=== PATIENT | female | born 1980 | race Two or more races ===

== ENCOUNTER → 2021-08-30 | Outpatient (CLI) | payer BC ==
[2021-08-30 15:40] LABS: BASOPHILS % 0.6 % (0.0-2.0); EOSINOPHILS % 6.3 % (0.0-5.0); HEMATOCRIT. 38.8 % (36.0-48.0); HEMOGLOBIN. 13.3 g/dL (12.0-16.0); LYMPHOCYTES % 43.9 % (20.0-50.0); MEAN CORPUSCULAR HEMOGLOBIN 31.7 pg (28.0-32.0); MEAN CORPUSCULAR VOLUME 92.7 fL (81.0-99.0); MEAN PLATELET VOLUME 7.1 fl (7.4-10.4); MONOCYTES % 8.5 % (2.0-8.0); NEUTROPHILS % 40.7 % (40.0-76.0); PLATELET 328 x1000/uL (130-400); RED BLOOD CELL COUNT 4.18 mill/uL (4.2-5.4); RED CELL DISTRIBUTION WIDTH 12.8 % (11.6-14.6)
[2021-08-30 15:46] LABS: CHLORIDE 106 mEq/L (98-107)
[2021-08-30 15:53] LABS: TOTAL IRON BINDING CAPACITY 344 ug/dL (250-450)
== END | disposition home or self-care (01) ==
LOC: LAB 15:04
PROVIDERS: ATTEND Internal Medicine
DX: D50.9 Iron deficiency anemia, unspecified (principal)
CPT/HCPCS: 36415; 80053; 83540; 83550; 85025

== ENCOUNTER 2022-06-13 17:38 | Emergency (ER) | payer BC ==
[~2022-06-13] VITALS: Ht 172.7 cm; Wt 77.0 kg
[2022-06-13] MEDS ORDERED: MORPHINE SULFATE 4 MG/ML CPJ (NOT FOR IM USE) IV NR (19:10)
[2022-06-13 19:41] LABS: BASOPHILS % 0.4 % (0.0-2.0); HEMATOCRIT. 42.7 % (36.0-48.0); HEMOGLOBIN. 14.6 g/dL (12.0-16.0); MEAN CORPUSCULAR HEMOGLOBIN 31.8 pg (28.0-32.0); MEAN CORPUSCULAR VOLUME 93.3 fL (81.0-99.0); MONOCYTES % 8.7 % (2.0-8.0); NEUTROPHILS % 60.9 % (40.0-76.0); PLATELET 390 x1000/uL (130-400); RED BLOOD CELL COUNT 4.57 mill/uL (4.2-5.4)
[2022-06-13 19:51] LABS: CHLORIDE 104 mEq/L (98-107)
[2022-06-13 19:58] LABS: HCG SCREEN NEGATIVE
[2022-06-13 20:14] LABS: CLARITY URINE CLEAR (CLEAR); COLOR URINE YELLOW (YELLOW); KETONES URINE NEGATIVE (NEGATIVE); LEUKOCYTE ESTERASE URINE TRACE (NEGATIVE); NITRITE URINE NEGATIVE (NEGATIVE); OCCULT BLOOD URINE TRACE (NEGATIVE); PROTEIN URINE NEGATIVE (NEGATIVE); SPECIFIC GRAVITY URINE 1.013 (1.005-1.030); UROBILINOGEN URINE 0.2 E.U./dL (0.2-1.0)
[2022-06-13] MEDS ORDERED: VISCOUS LIDOCAINE 2% 15 ML UDC PO STA (22:00)
[2022-06-13] MEDS ORDERED: DICYCLOMINE 10 MG/5 ML ORAL SYR PO STA (22:00)
[2022-06-13] MEDS ORDERED: MAGNESIUM/ALUMINUM HYDROXIDE/SIMETHICONE 30ML UDC PO STA (22:00)
[2022-06-13] MEDS ORDERED: PANTOPRAZOLE 40MG DR TABLET PO ONE (22:00)
[2022-06-13] MEDS ORDERED: OMEP20CA14 MT (22:04)
[2022-06-13 23:25] VITALS: BP 122/80
== END 2022-06-13 23:26 | disposition home or self-care (01) ==
LOC: ER 17:44
DX: S46.911A Strain of unspecified muscle, fascia and tendon at shoulder and upper arm level, right arm, initial encounter (principal); K29.60 Other gastritis without bleeding; X58.XXXA Exposure to other specified factors, initial encounter; Y93.89 Activity, other specified; Y92.89 Other specified places as the place of occurrence of the external cause; Y99.8 Other external cause status
CPT/HCPCS: 36415; 73030; 76705; 80053; 81003; 83690; 84703; 85025; 96374; 99285; J2270; Z7610

== ENCOUNTER → 2022-06-16 | Outpatient (CLI) | payer BC ==
[~2022-06-16] MED LIST: OMEP20CA14 MT
== END | disposition home or self-care (01) ==
LOC: LAB 16:20
PROVIDERS: ATTEND Internal Medicine
DX: M13.0 Polyarthritis, unspecified (principal)
CPT/HCPCS: 36415; 85651; 86038; 86430

== ENCOUNTER 2022-07-18 23:17 | Inpatient (IN) | payer BC ==
[~2022-07-18] VITALS: Ht 172.7 cm; Wt 78.0 kg
[2022-07-19] MEDS ORDERED: KETOROLAC 30MG/ML VIAL IV STA (00:10)
[2022-07-19] MEDS ORDERED: SODIUM CHLORIDE 0.9% 1,000 ML IV ONE (00:15)
[2022-07-19] MEDS ORDERED: ONDANSETRON HCL 4MG/2ML INJ IV ONE (00:15)
[2022-07-19 00:49] LABS: BASOPHILS % 0.2 % (0.0-2.0); HEMATOCRIT. 40.7 % (36.0-48.0); HEMOGLOBIN. 14.2 g/dL (12.0-16.0); LYMPHOCYTES % 10.2 % (20.0-50.0); MEAN CORPUSCULAR HEMOGLOBIN 32.2 pg (28.0-32.0); MEAN CORPUSCULAR VOLUME 92.5 fL (81.0-99.0); MEAN PLATELET VOLUME 7.8 fl (7.4-10.4); MONOCYTES % 1.6 % (2.0-8.0); PLATELET 337 x1000/uL (130-400); RED CELL DISTRIBUTION WIDTH 13.3 % (11.6-14.6)
[2022-07-19 00:51] LABS: CLARITY URINE CLEAR (CLEAR); COLOR URINE YELLOW (YELLOW); KETONES URINE 4+ (NEGATIVE); LEUKOCYTE ESTERASE URINE 1+ (NEGATIVE); NITRITE URINE NEGATIVE (NEGATIVE); OCCULT BLOOD URINE TRACE (NEGATIVE); PH URINE 7.5 (4.5-8.0); PROTEIN URINE 1+ (NEGATIVE); UROBILINOGEN URINE 0.2 E.U./dL (0.2-1.0)
[2022-07-19 00:55] LABS: CHLORIDE 103 mEq/L (98-107)
[2022-07-19] MEDS ORDERED: FAMO-135 PO (03:19)
[2022-07-19] MEDS ORDERED: CEPH500C2 MT (03:19)
[2022-07-19] MEDS ORDERED: FAMOTIDINE 20MG TABLET PO ONE (03:30)
[2022-07-19] MEDS ORDERED: CEPHALEXIN 250MG CAPSULE PO ONE (03:45)
[2022-07-19] MEDS ORDERED: ZOLPIDEM TARTRATE 5MG TABLET PO PRN (14:30)
[2022-07-19] MEDS ORDERED: DIPHENHYDRAMINE 50MG/ML VIAL IV PRN (14:30)
[2022-07-19] MEDS ORDERED: ACETAMINOPHEN 325MG TABLET PO PRN ×2 (14:30)
[2022-07-19] MEDS ORDERED: MAGNESIUM/ALUMINUM HYDROXIDE/SIMETHICONE 30ML UDC PO PRN (14:30)
[2022-07-19] MEDS ORDERED: CLONIDINE 0.1MG TABLET PO PRN (14:30)
[2022-07-19] MEDS ORDERED: NALOXONE HCL 0.4MG/ML VIAL IV PRN (14:45)
[2022-07-19 15:00] VITALS: BP 147/80
[2022-07-19 16:00] VITALS: BP 149/78
[2022-07-19] MEDS: SODIUM CHLORIDE 0.9% 1,000 ML IV SCH ×2 (17:05→22:24)
[2022-07-19] MEDS: ONDANSETRON HCL 4MG/2ML INJ IV PRN ×2 (17:12→21:58)
[2022-07-19] MEDS: MORPHINE SULFATE 2 MG/ML CPJ (NOT FOR IM USE) IV PRN (17:12)
[2022-07-19 20:00] VITALS: BP 115/60
[2022-07-19 23:55] VITALS: BP 146/77
[2022-07-19 23:56] LABS: UCG SCREEN NEGATIVE
[2022-07-20] MEDS: SODIUM CHLORIDE 0.9% 1,000 ML IV SCH ×4 (01:19→23:58)
[2022-07-20] MEDS: KETOROLAC 30MG/ML VIAL IV PRN (01:31)
[2022-07-20] MEDS: ONDANSETRON HCL 4MG/2ML INJ IV PRN ×3 (02:35→12:34)
[2022-07-20 04:00] VITALS: BP 124/74
[2022-07-20 06:50] LABS: BASOPHILS % 0.5 % (0.0-2.0); EOSINOPHILS % 0.2 % (0.0-5.0); HEMATOCRIT. 38.5 % (36.0-48.0); HEMOGLOBIN. 13.2 g/dL (12.0-16.0); LYMPHOCYTES % 22.7 % (20.0-50.0); MEAN CORPUSCULAR HEMOGLOBIN 32.5 pg (28.0-32.0); MEAN CORPUSCULAR VOLUME 94.5 fL (81.0-99.0); MEAN PLATELET VOLUME 7.4 fl (7.4-10.4); MONOCYTES % 9.5 % (2.0-8.0); NEUTROPHILS % 67.1 % (40.0-76.0); PLATELET 301 x1000/uL (130-400); RED BLOOD CELL COUNT 4.08 mill/uL (4.2-5.4); RED CELL DISTRIBUTION WIDTH 13.1 % (11.6-14.6)
[2022-07-20 08:00] VITALS: BP 148/79
[2022-07-20 08:08] LABS: CHLORIDE 104 mEq/L (98-107)
[2022-07-20 08:21] LABS: PHOSPHORUS 2.4 mg/dL (2.5-4.9)
[2022-07-20] MEDS ORDERED: PANTOPRAZOLE SODIUM 40 MG/VIAL IV SCH (09:00)
[2022-07-20] MEDS: MORPHINE SULFATE 2 MG/ML CPJ (NOT FOR IM USE) IV PRN (12:34)
[2022-07-20 16:00] VITALS: BP 129/69
[2022-07-20] MEDS: METOCLOPRAMIDE HCL 10MG/2ML VIAL IV SCH ×2 (17:20→23:54)
[2022-07-20 20:00] VITALS: BP 147/79
[2022-07-20] MEDS: NITROFURANTOIN 100MG M/M CAPSULE PO SCH (20:01)
[2022-07-20] MEDS: PANTOPRAZOLE SODIUM 40 MG/VIAL IV SCH (20:08)
[2022-07-20 21:53] LABS: HEPATITIS B SURFACE ANTIGEN NEGATIVE
[2022-07-21] VITALS: BP 147/93
[2022-07-21 04:00] VITALS: BP 133/70
[2022-07-21] MEDS: SODIUM CHLORIDE 0.9% 1,000 ML IV SCH ×2 (06:30→14:30)
[2022-07-21 07:27] LABS: BASOPHILS % 0.3 % (0.0-2.0); EOSINOPHILS % 0.2 % (0.0-5.0); HEMATOCRIT. 37.8 % (36.0-48.0); HEMOGLOBIN. 13.5 g/dL (12.0-16.0); MEAN CORPUSCULAR HEMOGLOBIN 32.7 pg (28.0-32.0); MEAN CORPUSCULAR VOLUME 91.8 fL (81.0-99.0); MEAN PLATELET VOLUME 7.7 fl (7.4-10.4); MONOCYTES % 9.3 % (2.0-8.0); NEUTROPHILS % 68.2 % (40.0-76.0); PLATELET 323 x1000/uL (130-400); RED BLOOD CELL COUNT 4.12 mill/uL (4.2-5.4); RED CELL DISTRIBUTION WIDTH 12.9 % (11.6-14.6)
[2022-07-21 07:47] LABS: CHLORIDE 100 mEq/L (98-107)
[2022-07-21 08:00] VITALS: BP 139/72
[2022-07-21] MEDS: NITROFURANTOIN 100MG M/M CAPSULE PO SCH ×2 (09:21→22:01)
[2022-07-21] MEDS: PANTOPRAZOLE SODIUM 40 MG/VIAL IV SCH ×2 (09:21→22:02)
[2022-07-21] MEDS: MORPHINE SULFATE 2 MG/ML CPJ (NOT FOR IM USE) IV PRN (09:22)
[2022-07-21] MEDS: METOCLOPRAMIDE HCL 10MG/2ML VIAL IV SCH ×4 (09:22→23:43)
[2022-07-21 12:00] VITALS: BP 130/75
[2022-07-21 16:00] VITALS: BP 129/70
[2022-07-21 20:00] VITALS: BP 101/58
[2022-07-21] MEDS: KETOROLAC 30MG/ML VIAL IV PRN (22:02)
[2022-07-22] VITALS: BP 105/62
[2022-07-22 04:00] VITALS: BP 151/82
[2022-07-22] MEDS: METOCLOPRAMIDE HCL 10MG/2ML VIAL IV SCH ×2 (05:16→12:00)
[2022-07-22 08:00] VITALS: BP 147/83
[2022-07-22] MEDS: NITROFURANTOIN 100MG M/M CAPSULE PO SCH (09:00)
[2022-07-22] MEDS: PANTOPRAZOLE SODIUM 40 MG/VIAL IV SCH (09:00)
[2022-07-22 12:00] VITALS: BP 118/64
[2022-07-22 12:52] LABS: BASOPHILS % 0.2 % (0.0-2.0); EOSINOPHILS % 0.2 % (0.0-5.0); HEMOGLOBIN. 13.9 g/dL (12.0-16.0); LYMPHOCYTES % 26.7 % (20.0-50.0); MEAN CORPUSCULAR HEMOGLOBIN 32.6 pg (28.0-32.0); MEAN CORPUSCULAR VOLUME 91.4 fL (81.0-99.0); MEAN PLATELET VOLUME 7.7 fl (7.4-10.4); MONOCYTES % 10.6 % (2.0-8.0); NEUTROPHILS % 62.3 % (40.0-76.0); PLATELET 323 x1000/uL (130-400); RED BLOOD CELL COUNT 4.26 mill/uL (4.2-5.4); RED CELL DISTRIBUTION WIDTH 12.7 % (11.6-14.6)
[2022-07-22 13:52] LABS: CHLORIDE 100 mEq/L (98-107)
[2022-07-22 16:00] VITALS: BP 111/64
[2022-07-22 17:26] VITALS: BP 136/62
== END 2022-07-22 20:10 | disposition home or self-care (01) | DRG 760 ==
LOC: ER 23:17 → 4WST 07-19 06:37 → 6EST 07-20 15:35
PROVIDERS: ADMIT Internal Medicine; ATTEND Internal Medicine
DX: N83.201 Unspecified ovarian cyst, right side (principal); N39.0 Urinary tract infection, site not specified; K42.9 Umbilical hernia without obstruction or gangrene; K52.9 Noninfective gastroenteritis and colitis, unspecified
CPT/HCPCS: 36415; 74018; 74176; 76700; 76705; 76830; 76856; 80048; 80053; 80076; 81003; 81025; 82248; 83735; 84100; 85025; 86304; 86705; 86709; 86803; 87340; 93005; 99285; C9113; J1885; J2270; J2405; J2765; J7030

== ENCOUNTER → 2022-08-02 | Outpatient (CLI) | payer BC ==
[~2022-08-02] MED LIST changes: +CEPH500C2 MT; +FAMO-135 PO
[2022-08-02 11:39] LABS: HEMATOCRIT. 35.7 % (36.0-48.0); HEMOGLOBIN. 12.6 g/dL (12.0-16.0); LYMPHOCYTES % 36.2 % (20.0-50.0); MEAN CORPUSCULAR VOLUME 93.7 fL (81.0-99.0); NEUTROPHILS % 50.8 % (40.0-76.0); PLATELET 335 x1000/uL (130-400); RED BLOOD CELL COUNT 3.81 mill/uL (4.2-5.4); RED CELL DISTRIBUTION WIDTH 13.3 % (11.6-14.6)
[2022-08-02 11:44] LABS: CLARITY URINE CLEAR (CLEAR); COLOR URINE YELLOW (YELLOW); KETONES URINE NEGATIVE (NEGATIVE); LEUKOCYTE ESTERASE URINE NEGATIVE (NEGATIVE); NITRITE URINE NEGATIVE (NEGATIVE); OCCULT BLOOD URINE TRACE (NEGATIVE); PROTEIN URINE NEGATIVE (NEGATIVE); SPECIFIC GRAVITY URINE 1.004 (1.005-1.030); UROBILINOGEN URINE 0.2 E.U./dL (0.2-1.0)
[2022-08-02 12:17] LABS: CHLORIDE 104 mEq/L (98-107)
[2022-08-02 12:43] LABS: CREATINE KINASE 83 IU/L (26-192)
[2022-08-04 15:06] LABS: DRVVT LA 34.2 sec (0.0-47.0); LUPUS ANTICOAG INTERPRETATION Comment: (.); PTT-LA 34.9 sec (0.0-43.5)
== END | disposition home or self-care (01) ==
LOC: LAB 10:32
PROVIDERS: ATTEND Internal Medicine Rheumatology
DX: M06.4 Inflammatory polyarthropathy (principal); M05.79 Rheumatoid arthritis with rheumatoid factor of multiple sites without organ or systems involvement; M06.09 Rheumatoid arthritis without rheumatoid factor, multiple sites; M60.9 Myositis, unspecified; D86.86 Sarcoid arthropathy; M00.9 Pyogenic arthritis, unspecified
CPT/HCPCS: 36415; 80053; 81003; 82085; 82164; 82550; 82784; 82955; 84436; 84550; 85025; 85041; 85613; 85651; 85732; 86038; 86141; 86147; 86160; 86200; 86225; 86235; 86430

== ENCOUNTER → 2022-08-04 | Outpatient (CLI) | payer BC | END | disposition home or self-care (01) | LOC: MRI 07:13 | PROVIDERS: ATTEND Internal Medicine Rheumatology | DX: M05.79 Rheumatoid arthritis with rheumatoid factor of multiple sites without organ or systems involvement (principal); M06.4 Inflammatory polyarthropathy; M25.552 Pain in left hip; M25.551 Pain in right hip; M25.572 Pain in left ankle and joints of left foot; M25.571 Pain in right ankle and joints of right foot; M25.512 Pain in left shoulder; M25.511 Pain in right shoulder; M25.541 Pain in joints of right hand | CPT/HCPCS: 73030; 73130; 73220; 73221; 73521; 73610 ==

== ENCOUNTER 2022-11-22 23:08 | Emergency (ER) | payer BC ==
[~2022-11-22] VITALS: Ht 172.7 cm; Wt 77.0 kg
[2022-11-22 23:32] VITALS: TEMP 99; O2SAT 100
[2022-11-23 00:03] LABS: BASOPHILS % 0.4 % (0.0-2.0); HEMOGLOBIN. 13.9 g/dL (12.0-16.0); MEAN CORPUSCULAR HEMOGLOBIN 31.9 pg (28.0-32.0); MEAN CORPUSCULAR HGB CONC 34.9 g/dL (31.0-37.0); MEAN CORPUSCULAR VOLUME 91.3 fL (81.0-99.0); MONOCYTES % 1.5 % (2.0-8.0); NEUTROPHILS % 86.1 % (40.0-76.0); PLATELET 385 x1000/uL (130-400); RED BLOOD CELL COUNT 4.38 mill/uL (4.2-5.4); RED CELL DISTRIBUTION WIDTH 13.3 % (11.6-14.6); WHITE BLOOD COUNT 7.5 x1000/uL (4.5-11.0)
[2022-11-23 00:10] LABS: CHLORIDE 101 mEq/L (98-107); INDEX HEMOLYSI 1 (1-3); INDEX ICTERIC 1 (1-4); INDEX LIPEMIC 1 (1-3); POTASSIUM 3.6 mEq/L (3.5-5.1); SODIUM 134 mEq/L (136-145)
[2022-11-23 00:14] LABS: HCG SCREEN NEGATIVE
[2022-11-23 00:21] LABS: ALANINE AMINOTRANSFERASE 28 IU/L (13-61); ALBUMIN 4.1 g/dL (3.4-5.0); ASPARTATE AMINOTRANSFERASE 17 IU/L (15-37); BILIRUBIN TOTAL 0.6 mg/dL (0.1-1.0); CALCIUM 9.7 mg/dL (8.5-10.1); CARBON DIOXIDE 27 mEq/L (21-32); CREATININE 0.7 mg/dL (0.6-1.3); GLUCOSE 130 mg/dL (70-105); PROTEIN TOTAL 8.4 g/dL (6.0-8.3); TROPONIN I HIGH SENSITIVITY 4 ng/L (<54); UREA NITROGEN BLOOD 12 mg/dL (7-21)
[2022-11-23 02:38] VITALS: BP 137/91; PULSE 84; RESP 16
[2022-11-23] MEDS ORDERED: KETOROLAC 30MG/ML VIAL ONE (02:38)
[2022-11-23] MEDS ORDERED: ONDANSETRON HCL 4MG TABLET ONE (02:39)
[2022-11-23] MEDS ORDERED: MAGNESIUM/ALUMINUM HYDROXIDE/SIMETHICONE 30ML UDC ONE (02:39)
[2022-11-23] MEDS ORDERED: METO-293 MT (05:49)
== END 2022-11-23 08:03 | disposition home or self-care (01) ==
LOC: ER 23:08
DX: R10.13 Epigastric pain (principal); K21.9 Gastro-esophageal reflux disease without esophagitis
CPT/HCPCS: 99284; 80053; 84703; 83690; 85025; 84484; 36415; 93005; Q0162; J1885

== ENCOUNTER → 2023-01-02 | Outpatient (CLI) | payer BC ==
[~2023-01-02] MED LIST changes: +METO-293 MT
[2023-01-02 14:19] LABS: BASOPHILS % 0.5 % (0.0-2.0); EOSINOPHILS % 7.2 % (0.0-5.0); HEMOGLOBIN. 13.1 g/dL (12.0-16.0); LYMPHOCYTES % 38.3 % (20.0-50.0); MEAN CORPUSCULAR HEMOGLOBIN 32.1 pg (28.0-32.0); MEAN CORPUSCULAR HGB CONC 34.4 g/dL (31.0-37.0); MEAN CORPUSCULAR VOLUME 93.2 fL (81.0-99.0); MEAN PLATELET VOLUME 7.2 fl (7.4-10.4); MONOCYTES % 9.6 % (2.0-8.0); NEUTROPHILS % 44.4 % (40.0-76.0); PLATELET 341 x1000/uL (130-400); RED BLOOD CELL COUNT 4.07 mill/uL (4.2-5.4); RED CELL DISTRIBUTION WIDTH 12.8 % (11.6-14.6); WHITE BLOOD COUNT 4.8 x1000/uL (4.5-11.0)
[2023-01-02 14:22] LABS: CHLORIDE 105 mEq/L (98-107); INDEX HEMOLYSI 1 (1-3); INDEX ICTERIC 1 (1-4); INDEX LIPEMIC 1 (1-3); POTASSIUM 3.8 mEq/L (3.5-5.1); SODIUM 137 mEq/L (136-145)
[2023-01-02 14:31] LABS: ALANINE AMINOTRANSFERASE 22 IU/L (13-61); ALBUMIN 3.6 g/dL (3.4-5.0); ASPARTATE AMINOTRANSFERASE 18 IU/L (15-37); BILIRUBIN TOTAL 0.6 mg/dL (0.1-1.0); C REACTIVE PROTEIN QUANT 0.7 mg/L (0.0-3.0); CALCIUM 9.3 mg/dL (8.5-10.1); CARBON DIOXIDE 26 mEq/L (21-32); CREATINE KINASE 111 IU/L (26-192); CREATININE 0.7 mg/dL (0.6-1.3); GLUCOSE 92 mg/dL (70-105); PROTEIN TOTAL 7.2 g/dL (6.0-8.3); UREA NITROGEN BLOOD 12 mg/dL (7-21); URIC ACID 4.3 mg/dL (2.6-7.2)
[2023-01-02 14:59] LABS: ERYTHROCYTE SEDIMENTATION RATE 11 mm/hr (0-20)
== END | disposition home or self-care (01) ==
LOC: LAB 13:39
PROVIDERS: ATTEND Internal Medicine Rheumatology
DX: M06.4 Inflammatory polyarthropathy (principal); M60.9 Myositis, unspecified; M77.9 Enthesopathy, unspecified
CPT/HCPCS: 36415; 80053; 82085; 82550; 84550; 85025; 85651; 86140

== ENCOUNTER → 2023-05-10 | Outpatient (CLI) | payer BC ==
[~2023-05-10] MED LIST changes: +AMOX-494 PO; -CEPH500C2 MT; +CLAR-44 PO; -FAMO-135 PO; -OMEP20CA14 MT; +ONDA4TAB11 SL; +PROT40 PO; +SUCR1ORA15 PO
[2023-05-10 13:37] LABS: BASOPHILS % 0.8 % (0.0-2.0); EOSINOPHILS % 7.7 % (0.0-5.0); HEMATOCRIT. 38.8 % (36.0-48.0); HEMOGLOBIN. 13.2 g/dL (12.0-16.0); LYMPHOCYTES % 34.7 % (20.0-50.0); MEAN CORPUSCULAR HEMOGLOBIN 31.7 pg (28.0-32.0); MEAN CORPUSCULAR VOLUME 93.3 fL (81.0-99.0); MEAN PLATELET VOLUME 7.4 fl (7.4-10.4); MONOCYTES % 6.4 % (2.0-8.0); NEUTROPHILS % 50.4 % (40.0-76.0); PLATELET 326 x1000/uL (130-400); RED BLOOD CELL COUNT 4.16 mill/uL (4.2-5.4); RED CELL DISTRIBUTION WIDTH 12.5 % (11.6-14.6); WHITE BLOOD COUNT 4.6 x1000/uL (4.5-11.0)
[2023-05-10 13:40] LABS: CLARITY URINE CLEAR (CLEAR); COLOR URINE YELLOW (YELLOW); GLUCOSE URINE NEGATIVE (NEGATIVE); KETONES URINE NEGATIVE (NEGATIVE); LEUKOCYTE ESTERASE URINE NEGATIVE (NEGATIVE); NITRITE URINE NEGATIVE (NEGATIVE); OCCULT BLOOD URINE 1+ (NEGATIVE); PROTEIN URINE NEGATIVE (NEGATIVE); SPECIFIC GRAVITY URINE 1.008 (1.005-1.030); UROBILINOGEN URINE 0.2 E.U./dL (0.2-1.0)
[2023-05-10 13:54] LABS: SQUAMOUS EPITHELIAL CELL URINE FEW /lpf (RARE/1+)
[2023-05-10 13:55] LABS: RBC URINE 0-2 /hpf (0-2); WBC URINE 0-2 /hpf (0-2)
[2023-05-10 13:57] LABS: BACTERIA URINE NONE SEEN
[2023-05-10 14:05] LABS: ALANINE AMINOTRANSFERASE 19 IU/L (10-49); ALBUMIN 4.7 g/dL (3.2-4.8); ASPARTATE AMINOTRANSFERASE 25 IU/L (<34); BILIRUBIN TOTAL 0.6 mg/dL (0.1-1.0); C REACTIVE PROTEIN QUANT 1.3 mg/L (0.0-3.0); CALCIUM 9.9 mg/dL (8.7-10.4); CARBON DIOXIDE 28 mEq/L (21-32); CHLORIDE 102 mEq/L (98-107); CREATINE KINASE 171 IU/L (34-145); CREATININE 0.8 mg/dL (0.6-1.0); GLUCOSE 81 mg/dL (70-105); POTASSIUM 3.9 mEq/L (3.5-5.1); PROTEIN TOTAL 7.6 g/dL (6.0-8.3); SODIUM 136 mEq/L (136-145); UREA NITROGEN BLOOD 11 mg/dL (9-23); URIC ACID 3.5 mg/dL (3.1-7.8)
[2023-05-10 14:15] LABS: ERYTHROCYTE SEDIMENTATION RATE 8 mm/hr (0-20)
== END | disposition home or self-care (01) ==
LOC: LAB 12:35
PROVIDERS: ATTEND Internal Medicine Rheumatology
DX: M06.4 Inflammatory polyarthropathy (principal); M60.9 Myositis, unspecified; M77.9 Enthesopathy, unspecified
CPT/HCPCS: 36415; 80053; 81003; 82085; 82550; 84550; 85025; 85651; 86140

== ENCOUNTER → 2023-08-08 | Outpatient (CLI) | payer BC ==
[2023-08-08 12:28] LABS: CLARITY URINE CLEAR (CLEAR); COLOR URINE YELLOW (YELLOW); GLUCOSE URINE NEGATIVE (NEGATIVE); KETONES URINE NEGATIVE (NEGATIVE); LEUKOCYTE ESTERASE URINE NEGATIVE (NEGATIVE); NITRITE URINE NEGATIVE (NEGATIVE); OCCULT BLOOD URINE NEGATIVE (NEGATIVE); PH URINE 7.5 (4.5-8.0); PROTEIN URINE NEGATIVE (NEGATIVE); SPECIFIC GRAVITY URINE 1.009 (1.005-1.030); UROBILINOGEN URINE 0.2 E.U./dL (0.2-1.0)
[2023-08-08 12:37] LABS: CHLORIDE 104 mEq/L (98-107); POTASSIUM 3.6 mEq/L (3.5-5.1); SODIUM 137 mEq/L (136-145)
[2023-08-08 12:38] LABS: CALCIUM 10.5 mg/dL (8.7-10.4); CARBON DIOXIDE 30 mEq/L (21-32)
[2023-08-08 12:42] LABS: URIC ACID 5.1 mg/dL (3.1-7.8)
[2023-08-08 12:43] LABS: CREATININE 0.9 mg/dL (0.6-1.0); GLUCOSE 75 mg/dL (70-105); TRIGLYCERIDE 48 mg/dL (0-150); UREA NITROGEN BLOOD 7 mg/dL (9-23)
[2023-08-08 12:44] LABS: C REACTIVE PROTEIN QUANT 0.6 mg/L (0.0-3.0); LDL CHOLESTEROL 93 mg/dL (5-100)
[2023-08-08 12:45] LABS: ALANINE AMINOTRANSFERASE 16 IU/L (10-49); ALBUMIN 4.6 g/dL (3.2-4.8); ASPARTATE AMINOTRANSFERASE 20 IU/L (<34); CHOLESTEROL 167 mg/dL (<200); CREATINE KINASE 117 IU/L (34-145); HDL CHOLESTEROL 67 mg/dL (>65); PROTEIN TOTAL 7.5 g/dL (6.0-8.3)
[2023-08-08 12:46] LABS: BASOPHILS % 0.8 % (0.0-2.0); EOSINOPHILS % 5.6 % (0.0-5.0); HEMATOCRIT. 37.4 % (36.0-48.0); HEMOGLOBIN. 12.9 g/dL (12.0-16.0); LYMPHOCYTES % 46.2 % (20.0-50.0); MEAN CORPUSCULAR HEMOGLOBIN 31.9 pg (28.0-32.0); MEAN CORPUSCULAR HGB CONC 34.4 g/dL (31.0-37.0); MEAN CORPUSCULAR VOLUME 92.7 fL (81.0-99.0); NEUTROPHILS % 41.4 % (40.0-76.0); PLATELET 378 x1000/uL (130-400); RED BLOOD CELL COUNT 4.04 mill/uL (4.2-5.4); RED CELL DISTRIBUTION WIDTH 13.4 % (11.6-14.6)
[2023-08-08 12:47] LABS: T4 FREE 0.99 ng/dL (0.89-1.76)
[2023-08-08 13:45] LABS: ERYTHROCYTE SEDIMENTATION RATE 13 mm/hr (0-20)
[2023-08-09 09:10] LABS: ANTI-NUCLEAR ANTIBODIES DIRECT Negative (Negative); VITAMIN D 25-OH 26.7 ng/mL (30.0-100.0)
[2023-08-10 13:10] LABS: ALDOLASE 3.6 U/L (3.3-10.3)
== END | disposition home or self-care (01) ==
LOC: LAB 10:58
PROVIDERS: ATTEND Internal Medicine Rheumatology
DX: E78.00 Pure hypercholesterolemia, unspecified (principal); M60.9 Myositis, unspecified; D86.86 Sarcoid arthropathy; M05.79 Rheumatoid arthritis with rheumatoid factor of multiple sites without organ or systems involvement; E55.9 Vitamin D deficiency, unspecified; M06.4 Inflammatory polyarthropathy; E03.9 Hypothyroidism, unspecified; M06.09 Rheumatoid arthritis without rheumatoid factor, multiple sites
CPT/HCPCS: 36415; 80053; 80061; 81003; 82085; 82306; 82550; 84439; 84550; 85025; 85651; 86038; 86140; 86430

== ENCOUNTER → 2023-09-26 | Outpatient (CLI) | payer BC ==
[2023-09-26 17:56] LABS: CLARITY URINE CLEAR (CLEAR); COLOR URINE YELLOW (YELLOW); GLUCOSE URINE NEGATIVE (NEGATIVE); KETONES URINE TRACE (NEGATIVE); LEUKOCYTE ESTERASE URINE NEGATIVE (NEGATIVE); NITRITE URINE NEGATIVE (NEGATIVE); OCCULT BLOOD URINE NEGATIVE (NEGATIVE); PH URINE 5.5 (4.5-8.0); PROTEIN URINE NEGATIVE (NEGATIVE); SPECIFIC GRAVITY URINE 1.013 (1.005-1.030); UROBILINOGEN URINE 0.2 E.U./dL (0.2-1.0)
[2023-09-26 18:14] LABS: BASOPHILS % 0.5 % (0.0-2.0); EOSINOPHILS % 3.8 % (0.0-5.0); HEMATOCRIT. 37.7 % (36.0-48.0); HEMOGLOBIN. 12.9 g/dL (12.0-16.0); LYMPHOCYTES % 40.6 % (20.0-50.0); MEAN CORPUSCULAR HEMOGLOBIN 32.3 pg (28.0-32.0); MEAN CORPUSCULAR HGB CONC 34.2 g/dL (31.0-37.0); MEAN CORPUSCULAR VOLUME 94.4 fL (81.0-99.0); MEAN PLATELET VOLUME 7.6 fl (7.4-10.4); MONOCYTES % 6.6 % (2.0-8.0); NEUTROPHILS % 48.5 % (40.0-76.0); PLATELET 331 x1000/uL (130-400); RED BLOOD CELL COUNT 3.99 mill/uL (4.2-5.4); RED CELL DISTRIBUTION WIDTH 12.9 % (11.6-14.6)
[2023-09-26 18:25] LABS: CARBON DIOXIDE 26 mEq/L (21-32); CHLORIDE 106 mEq/L (98-107); POTASSIUM 3.9 mEq/L (3.5-5.1); SODIUM 138 mEq/L (136-145)
[2023-09-26 18:26] LABS: CALCIUM 9.8 mg/dL (8.7-10.4)
[2023-09-26 18:30] LABS: CREATININE 0.9 mg/dL (0.6-1.0); GLUCOSE 94 mg/dL (70-105); URIC ACID 5.3 mg/dL (3.1-7.8)
[2023-09-26 18:31] LABS: TRIGLYCERIDE 42 mg/dL (0-150); UREA NITROGEN BLOOD 8 mg/dL (9-23)
[2023-09-26 18:32] LABS: ALANINE AMINOTRANSFERASE 26 IU/L (10-49); ALBUMIN 4.7 g/dL (3.2-4.8); ASPARTATE AMINOTRANSFERASE 23 IU/L (<34); CREATINE KINASE 120 IU/L (34-145); LDL CHOLESTEROL 79 mg/dL (5-100)
[2023-09-26 18:33] LABS: BILIRUBIN TOTAL 0.7 mg/dL (0.1-1.0); CHOLESTEROL 148 mg/dL (<200); HDL CHOLESTEROL 52 mg/dL (>65); PROTEIN TOTAL 7.2 g/dL (6.0-8.3)
[2023-09-26 18:53] LABS: ERYTHROCYTE SEDIMENTATION RATE 8 mm/hr (0-20)
[2023-09-28 09:10] LABS: VITAMIN D 25-OH 25.2 ng/mL (30.0-100.0)
== END | disposition home or self-care (01) ==
LOC: LAB 17:00
PROVIDERS: ATTEND Internal Medicine Rheumatology
DX: M06.4 Inflammatory polyarthropathy (principal); E55.9 Vitamin D deficiency, unspecified; M06.09 Rheumatoid arthritis without rheumatoid factor, multiple sites; E78.00 Pure hypercholesterolemia, unspecified; M05.79 Rheumatoid arthritis with rheumatoid factor of multiple sites without organ or systems involvement
CPT/HCPCS: 36415; 80053; 80061; 81003; 82085; 82306; 82550; 84550; 85025; 85651; 86140

== ENCOUNTER → 2023-12-21 | Outpatient (CLI) | payer BC ==
[~2023-12-21] MED LIST changes: +ONDA-239 SL; -ONDA4TAB11 SL
[2023-12-21 13:27] LABS: BASOPHILS % 0.7 % (0.0-2.0); EOSINOPHILS % 5.9 % (0.0-5.0); HEMATOCRIT. 39.2 % (36.0-48.0); HEMOGLOBIN. 13.2 g/dL (12.0-16.0); LYMPHOCYTES % 38.4 % (20.0-50.0); MEAN CORPUSCULAR HEMOGLOBIN 31.7 pg (28.0-32.0); MEAN CORPUSCULAR HGB CONC 33.8 g/dL (31.0-37.0); MEAN CORPUSCULAR VOLUME 93.8 fL (81.0-99.0); MEAN PLATELET VOLUME 7.2 fl (7.4-10.4); PLATELET 325 x1000/uL (130-400); RED BLOOD CELL COUNT 4.18 mill/uL (4.2-5.4); RED CELL DISTRIBUTION WIDTH 12.8 % (11.6-14.6); WHITE BLOOD COUNT 4.4 x1000/uL (4.5-11.0)
[2023-12-21 13:37] LABS: CLARITY URINE CLEAR (CLEAR); COLOR URINE YELLOW (YELLOW); GLUCOSE URINE NEGATIVE (NEGATIVE); KETONES URINE NEGATIVE (NEGATIVE); LEUKOCYTE ESTERASE URINE NEGATIVE (NEGATIVE); NITRITE URINE NEGATIVE (NEGATIVE); OCCULT BLOOD URINE NEGATIVE (NEGATIVE); PH URINE 6.5 (4.5-8.0); PROTEIN URINE NEGATIVE (NEGATIVE); SPECIFIC GRAVITY URINE 1.016 (1.005-1.030); UROBILINOGEN URINE 0.2 E.U./dL (0.2-1.0)
[2023-12-21 13:49] LABS: CHLORIDE 105 mEq/L (98-107); POTASSIUM 4.3 mEq/L (3.5-5.1); SODIUM 136 mEq/L (136-145)
[2023-12-21 13:50] LABS: CALCIUM 9.7 mg/dL (8.7-10.4); CARBON DIOXIDE 27 mEq/L (21-32)
[2023-12-21 13:54] LABS: URIC ACID 4.7 mg/dL (3.1-7.8)
[2023-12-21 13:55] LABS: CREATININE 0.8 mg/dL (0.6-1.0); GLUCOSE 89 mg/dL (70-105); TRIGLYCERIDE 50 mg/dL (0-150); UREA NITROGEN BLOOD 12 mg/dL (9-23)
[2023-12-21 13:56] LABS: C REACTIVE PROTEIN HIGH SENS 0.64 mg/l (<1.00); CREATINE KINASE MB FRACTION 0.6 ng/mL (0.5-3.6)
[2023-12-21 13:57] LABS: ALANINE AMINOTRANSFERASE 20 IU/L (10-49); ALBUMIN 4.6 g/dL (3.2-4.8); ASPARTATE AMINOTRANSFERASE 24 IU/L (<34); BILIRUBIN TOTAL 0.6 mg/dL (0.1-1.0); CHOLESTEROL 161 mg/dL (<200); PROTEIN TOTAL 7.6 g/dL (6.0-8.3)
[2023-12-21 14:37] LABS: ERYTHROCYTE SEDIMENTATION RATE 12 mm/hr (0-20)
[2023-12-24 10:06] LABS: ANTI-NUCLEAR ANTIBODIES DIRECT Negative (Negative)
[2023-12-25 04:10] LABS: ALDOLASE 5.2 U/L (3.3-10.3); VITAMIN D 25-OH 22.9 ng/mL (30.0-100.0)
== END | disposition home or self-care (01) ==
LOC: LAB 12:54
PROVIDERS: ATTEND Internal Medicine Rheumatology
DX: E78.00 Pure hypercholesterolemia, unspecified (principal); M05.79 Rheumatoid arthritis with rheumatoid factor of multiple sites without organ or systems involvement; E55.9 Vitamin D deficiency, unspecified; M06.4 Inflammatory polyarthropathy; I77.6 Arteritis, unspecified; M05.49 Rheumatoid myopathy with rheumatoid arthritis of multiple sites; M05.29 Rheumatoid vasculitis with rheumatoid arthritis of multiple sites; M06.09 Rheumatoid arthritis without rheumatoid factor, multiple sites
CPT/HCPCS: 36415; 80053; 81003; 82085; 82306; 82465; 82553; 84478; 84550; 85025; 85651; 86038; 86141; 86431

== ENCOUNTER → 2024-04-15 | Outpatient (CLI) | payer BC ==
[2024-04-15 10:36] LABS: BASOPHILS % 0.5 % (0.0-2.0); EOSINOPHILS % 4.3 % (0.0-5.0); HEMATOCRIT. 36.9 % (36.0-48.0); HEMOGLOBIN. 12.8 g/dL (12.0-16.0); LYMPHOCYTES % 44.3 % (20.0-50.0); MEAN CORPUSCULAR HEMOGLOBIN 32.2 pg (28.0-32.0); MEAN CORPUSCULAR HGB CONC 34.5 g/dL (31.0-37.0); MEAN CORPUSCULAR VOLUME 93.2 fL (81.0-99.0); MONOCYTES % 8.7 % (2.0-8.0); NEUTROPHILS % 42.2 % (40.0-76.0); PLATELET 366 x1000/uL (130-400); RED BLOOD CELL COUNT 3.96 mill/uL (4.2-5.4); RED CELL DISTRIBUTION WIDTH 12.9 % (11.6-14.6); WHITE BLOOD COUNT 3.6 x1000/uL (4.5-11.0)
[2024-04-15 10:42] LABS: CHLORIDE 104 mEq/L (98-107); POTASSIUM 4.1 mEq/L (3.5-5.1); SODIUM 138 mEq/L (136-145)
[2024-04-15 10:43] LABS: CALCIUM 10.1 mg/dL (8.7-10.4); CARBON DIOXIDE 29 mEq/L (21-32)
[2024-04-15 10:47] LABS: UREA NITROGEN BLOOD 10 mg/dL (9-23); URIC ACID 5.2 mg/dL (3.1-7.8)
[2024-04-15 10:48] LABS: CREATININE 0.9 mg/dL (0.6-1.0); GLUCOSE 91 mg/dL (70-105); TRIGLYCERIDE 41 mg/dL (0-150)
[2024-04-15 10:49] LABS: C REACTIVE PROTEIN HIGH SENS 1.02 mg/l (<1.00)
[2024-04-15 10:50] LABS: ALANINE AMINOTRANSFERASE 21 IU/L (10-49); ALBUMIN 4.5 g/dL (3.2-4.8); ASPARTATE AMINOTRANSFERASE 23 IU/L (<34); CHOLESTEROL 164 mg/dL (<200); CREATINE KINASE 109 IU/L (34-145); HDL CHOLESTEROL 56 mg/dL (>65); PROTEIN TOTAL 7.2 g/dL (6.0-8.3)
[2024-04-15 11:20] LABS: CLARITY URINE CLEAR (CLEAR); COLOR URINE YELLOW (YELLOW); GLUCOSE URINE NEGATIVE (NEGATIVE); KETONES URINE NEGATIVE (NEGATIVE); LEUKOCYTE ESTERASE URINE TRACE (NEGATIVE); NITRITE URINE NEGATIVE (NEGATIVE); OCCULT BLOOD URINE NEGATIVE (NEGATIVE); PH URINE 7.5 (4.5-8.0); PROTEIN URINE NEGATIVE (NEGATIVE); SPECIFIC GRAVITY URINE 1.013 (1.005-1.030)
[2024-04-15 11:33] LABS: BACTERIA URINE FEW; RBC URINE 0-2 /hpf (0-2); SQUAMOUS EPITHELIAL CELL URINE 2+ /lpf (RARE/1+); YEAST URINE NONE SEEN
[2024-04-15 12:22] LABS: ERYTHROCYTE SEDIMENTATION RATE 10 mm/hr (0-20)
[2024-04-17 15:09] LABS: ANTI-NUCLEAR ANTIBODIES DIRECT Negative (Negative)
[2024-04-18 17:10] LABS: ALDOLASE 4.6 U/L (3.3-10.3)
== END | disposition home or self-care (01) ==
LOC: LAB 09:47
PROVIDERS: ATTEND Internal Medicine Rheumatology
DX: M05.79 Rheumatoid arthritis with rheumatoid factor of multiple sites without organ or systems involvement (principal); M05.29 Rheumatoid vasculitis with rheumatoid arthritis of multiple sites; M06.4 Inflammatory polyarthropathy; E78.00 Pure hypercholesterolemia, unspecified; E55.9 Vitamin D deficiency, unspecified; I77.6 Arteritis, unspecified; M60.9 Myositis, unspecified; M19.90 Unspecified osteoarthritis, unspecified site
CPT/HCPCS: 36415; 80053; 81003; 82085; 82306; 82465; 82550; 83718; 84478; 84550; 85025; 85651; 86038; 86141; 86430

== ENCOUNTER → 2024-07-09 | Outpatient (CLI) | payer BC ==
[2024-07-09 11:35] LABS: BASOPHILS % 0.5 % (0.0-2.0); EOSINOPHILS % 5.8 % (0.0-5.0); HEMATOCRIT. 36.1 % (36.0-48.0); HEMOGLOBIN. 11.9 g/dL (12.0-16.0); LYMPHOCYTES % 43.8 % (20.0-50.0); MEAN CORPUSCULAR HEMOGLOBIN 30.7 pg (28.0-32.0); MEAN CORPUSCULAR HGB CONC 32.9 g/dL (31.0-37.0); MEAN CORPUSCULAR VOLUME 93.3 fL (81.0-99.0); MEAN PLATELET VOLUME 6.9 fl (7.4-10.4); MONOCYTES % 10.9 % (2.0-8.0); PLATELET 325 x1000/uL (130-400); RED BLOOD CELL COUNT 3.87 mill/uL (4.2-5.4)
[2024-07-09 11:40] LABS: CLARITY URINE CLEAR (CLEAR); COLOR URINE YELLOW (YELLOW); GLUCOSE URINE NEGATIVE (NEGATIVE); KETONES URINE TRACE (NEGATIVE); LEUKOCYTE ESTERASE URINE NEGATIVE (NEGATIVE); NITRITE URINE NEGATIVE (NEGATIVE); OCCULT BLOOD URINE 2+ (NEGATIVE); PROTEIN URINE NEGATIVE (NEGATIVE)
[2024-07-09 11:44] LABS: CHLORIDE 104 mEq/L (98-107); SODIUM 139 mEq/L (136-145)
[2024-07-09 11:45] LABS: CALCIUM 10.1 mg/dL (8.7-10.4); CARBON DIOXIDE 29 mEq/L (21-32)
[2024-07-09 11:50] LABS: CREATININE 0.8 mg/dL (0.6-1.0); GLUCOSE 83 mg/dL (70-105); TRIGLYCERIDE 46 mg/dL (0-150); URIC ACID 5.1 mg/dL (3.1-7.8)
[2024-07-09 11:51] LABS: C REACTIVE PROTEIN HIGH SENS 0.97 mg/l (<1.00); UREA NITROGEN BLOOD 8 mg/dL (9-23)
[2024-07-09 11:52] LABS: ALANINE AMINOTRANSFERASE 20 IU/L (10-49); ALBUMIN 4.2 g/dL (3.2-4.8); ASPARTATE AMINOTRANSFERASE 24 IU/L (<34); BILIRUBIN TOTAL 0.9 mg/dL (0.1-1.0); CHOLESTEROL 145 mg/dL (<200); CREATINE KINASE 137 IU/L (34-145); HDL CHOLESTEROL 55 mg/dL (>65); PROTEIN TOTAL 7.3 g/dL (6.0-8.3)
[2024-07-09 11:54] LABS: SQUAMOUS EPITHELIAL CELL URINE RARE /lpf (RARE/1+)
[2024-07-09 11:55] LABS: RBC URINE 50-100 /hpf (0-2)
[2024-07-09 11:56] LABS: BACTERIA URINE NONE SEEN; WBC URINE 0-2 /hpf (0-2)
[2024-07-09 12:44] LABS: ERYTHROCYTE SEDIMENTATION RATE 6 mm/hr (0-20)
[2024-07-11 09:12] LABS: VITAMIN D 25-OH 50.5 ng/mL (30.0-100.0)
[2024-07-12 13:07] LABS: ALDOLASE 5.6 U/L (3.3-10.3)
== END | disposition home or self-care (01) ==
LOC: LAB 11:04
PROVIDERS: ATTEND Internal Medicine Rheumatology
DX: E55.9 Vitamin D deficiency, unspecified (principal); E78.00 Pure hypercholesterolemia, unspecified; M06.4 Inflammatory polyarthropathy; M60.9 Myositis, unspecified
CPT/HCPCS: 36415; 80053; 81003; 82085; 82306; 82465; 82550; 83718; 84478; 84550; 85025; 85651; 86141

== ENCOUNTER → 2024-11-12 | Outpatient (CLI) | payer BC ==
[2024-11-12 09:39] LABS: BASOPHILS % 0.8 % (0.0-2.0); EOSINOPHILS % 6.4 % (0.0-5.0); HEMATOCRIT. 36.4 % (36.0-48.0); HEMOGLOBIN. 12.5 g/dL (12.0-16.0); LYMPHOCYTES % 43.3 % (20.0-50.0); MEAN PLATELET VOLUME 6.9 fl (7.4-10.4); MONOCYTES % 9.4 % (2.0-8.0); NEUTROPHILS % 40.1 % (40.0-76.0); PLATELET 338 x1000/uL (130-400); RED BLOOD CELL COUNT 4.03 mill/uL (4.2-5.4); RED CELL DISTRIBUTION WIDTH 13.4 % (11.6-14.6)
[2024-11-12 09:51] LABS: CREATININE 0.9 mg/dL (0.6-1.0)
[2024-11-12 09:52] LABS: TRIGLYCERIDE 42 mg/dL (0-150); UREA NITROGEN BLOOD 11 mg/dL (9-23)
[2024-11-12 09:53] LABS: ASPARTATE AMINOTRANSFERASE 21 IU/L (<34); C REACTIVE PROTEIN HIGH SENS 0.66 mg/l (<1.00)
[2024-11-12 09:54] LABS: BILIRUBIN TOTAL 0.9 mg/dL (0.1-1.0); PROTEIN TOTAL 6.7 g/dL (6.0-8.3)
[2024-11-12 09:56] LABS: CLARITY URINE CLEAR (CLEAR); COLOR URINE YELLOW (YELLOW); GLUCOSE URINE NEGATIVE (NEGATIVE); KETONES URINE NEGATIVE (NEGATIVE); LEUKOCYTE ESTERASE URINE NEGATIVE (NEGATIVE); NITRITE URINE NEGATIVE (NEGATIVE); OCCULT BLOOD URINE NEGATIVE (NEGATIVE); PH URINE 6.0 (4.5-8.0); PROTEIN URINE NEGATIVE (NEGATIVE); SPECIFIC GRAVITY URINE 1.010 (1.005-1.030); UROBILINOGEN URINE 0.2 E.U./dL (0.2-1.0)
[2024-11-12 11:06] LABS: ERYTHROCYTE SEDIMENTATION RATE 9 mm/hr (0-20)
[2024-11-13 09:07] LABS: VITAMIN D 25-OH 30.6 ng/mL (30.0-100.0)
[2024-11-14 17:11] LABS: ALDOLASE 5.2 U/L (3.3-10.3)
== END | disposition home or self-care (01) ==
LOC: LAB 09:06
PROVIDERS: ATTEND Internal Medicine Rheumatology
DX: E55.9 Vitamin D deficiency, unspecified (principal); E78.00 Pure hypercholesterolemia, unspecified; M05.79 Rheumatoid arthritis with rheumatoid factor of multiple sites without organ or systems involvement; M06.09 Rheumatoid arthritis without rheumatoid factor, multiple sites; M06.4 Inflammatory polyarthropathy; M60.9 Myositis, unspecified; I77.6 Arteritis, unspecified
CPT/HCPCS: 36415; 80053; 80061; 81003; 82085; 82306; 82465; 82550; 83718; 84478; 84550; 85025; 85651; 86141

== ENCOUNTER → 2025-02-12 | Outpatient (CLI) | payer BC ==
[2025-02-12 07:15] LABS: BASOPHILS % 0.6 % (0.0-2.0); EOSINOPHILS % 7.5 % (0.0-5.0); HEMATOCRIT. 37.4 % (36.0-48.0); HEMOGLOBIN. 12.4 g/dL (12.0-16.0); LYMPHOCYTES % 34.0 % (20.0-50.0); MEAN PLATELET VOLUME 7.0 fl (7.4-10.4); MONOCYTES % 9.6 % (2.0-8.0); NEUTROPHILS % 48.3 % (40.0-76.0); PLATELET 317 x1000/uL (130-400); RED BLOOD CELL COUNT 4.11 mill/uL (4.2-5.4); RED CELL DISTRIBUTION WIDTH 13.2 % (11.6-14.6)
[2025-02-12 07:33] LABS: CLARITY URINE CLEAR (CLEAR); COLOR URINE YELLOW (YELLOW); GLUCOSE URINE NEGATIVE (NEGATIVE); KETONES URINE NEGATIVE (NEGATIVE); LEUKOCYTE ESTERASE URINE TRACE (NEGATIVE); NITRITE URINE NEGATIVE (NEGATIVE); OCCULT BLOOD URINE TRACE (NEGATIVE); PH URINE 6.0 (4.5-8.0); PROTEIN URINE NEGATIVE (NEGATIVE); SPECIFIC GRAVITY URINE 1.017 (1.005-1.030); UROBILINOGEN URINE 1.0 E.U./dL (0.2-1.0)
[2025-02-12 08:08] LABS: CREATININE 0.9 mg/dL (0.6-1.0)
[2025-02-12 08:08] LABS: MUCUS URINE 2+ /lpf (< = 2+); SQUAMOUS EPITHELIAL CELL URINE 3+ /lpf (RARE/1+)
[2025-02-12 08:09] LABS: C REACTIVE PROTEIN HIGH SENS 0.75 mg/l (<1.00); TRIGLYCERIDE 54 mg/dL (0-150); UREA NITROGEN BLOOD 7 mg/dL (9-23)
[2025-02-12 08:10] LABS: RBC URINE 0-2 /hpf (0-2)
[2025-02-12 08:10] LABS: ASPARTATE AMINOTRANSFERASE 24 IU/L (<34)
[2025-02-12 08:11] LABS: BILIRUBIN TOTAL 0.9 mg/dL (0.1-1.0); PROTEIN TOTAL 7.1 g/dL (6.0-8.3)
[2025-02-12 08:15] LABS: BACTERIA URINE 1+
[2025-02-12 09:46] LABS: ERYTHROCYTE SEDIMENTATION RATE 12 mm/hr (0-20)
[2025-02-13 09:12] LABS: VITAMIN D 25-OH 29.1 ng/mL (30.0-100.0)
[2025-02-13 13:12] LABS: ANTI-NUCLEAR ANTIBODIES DIRECT Negative (Negative)
[2025-02-15 19:07] LABS: ALDOLASE 4.4 U/L (3.3-10.3)
== END | disposition home or self-care (01) ==
LOC: LAB 06:34
PROVIDERS: ATTEND Internal Medicine Rheumatology
DX: E78.00 Pure hypercholesterolemia, unspecified (principal); E55.9 Vitamin D deficiency, unspecified; I77.6 Arteritis, unspecified; M05.79 Rheumatoid arthritis with rheumatoid factor of multiple sites without organ or systems involvement; M06.09 Rheumatoid arthritis without rheumatoid factor, multiple sites; M06.4 Inflammatory polyarthropathy
CPT/HCPCS: 36415; 80053; 81001; 81003; 82085; 82306; 82465; 82550; 83718; 84478; 84550; 85025; 85651; 86038; 86141; 86430